=== PATIENT | male | born 1990 | race Caucasian/White ===

== ENCOUNTER 2020-10-03 13:12 | Emergency (ER) | payer SELFPAY ==
--- NOTE | ~2020-10-03 | XR_ITS ---
EXAMINATIONS: PELVIS 1 VIEW AND RIGHT HIP 2 VIEWS CLINICAL INFORMATION: Right hip pain. COMPARISON: None. TECHNIQUE: A supine view of the pelvis is provided. AP neutral and frog-leg lateral views of the right hip are provided. FINDINGS: There are no fractures. Both femoral heads are seated within well-formed acetabula. No dysplastic changes are identified. The visualized bowel gas pattern is unremarkable. XR/XR hip RT min 2V IMPRESSION: Unremarkable pelvic and right hip radiographs.
[2020-10-03 15:17] VITALS: BP 153/76; PULSE 74; RESP 18; TEMP 37.1; O2SAT 99; BMI 25.8
[2020-10-03 18:16] VITALS: BP 143/86; PULSE 84; RESP 18; TEMP 36.9; O2SAT 98
[2020-10-03] MEDS: Ibuprofen 800 MG TABLET PO (18:22)
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
== END 2020-10-03 19:16 | disposition home or self-care (01) ==
PROVIDERS: Emergency Provider Emergency Medicine
DX: S70.01XA Contusion of right hip, initial encounter (principal); V47.5XXA Car driver injured in collision with fixed or stationary object in traffic accident, initial encounter; Y93.89 Activity, other specified; Y92.411 Interstate highway as the place of occurrence of the external cause; Y99.9 Unspecified external cause status
CPT/HCPCS: 73502; 99283; 99284